=== PATIENT | female | born 1940 | race Caucasian/White ===

== ENCOUNTER 2017-03-31 13:20 | Outpatient (CLI) | payer MEDICARE, OTHER ==
[2016-07-22 00:40] VITALS: BP 178/66
== END 2017-03-31 13:21 ==
LOC: POD 13:20
PROVIDERS: ATTEND Podiatrist
DX: L89.892 Pressure ulcer of other site, stage 2 (principal); I87.323 Chronic venous hypertension (idiopathic) with inflammation of bilateral lower extremity
CPT/HCPCS: G0463

== ENCOUNTER 2017-04-14 13:17 | Outpatient (CLI) | payer MEDICARE, OTHER ==
[2016-07-22 00:40] VITALS: BP 178/66
== END 2017-04-14 13:18 ==
LOC: POD 13:17
PROVIDERS: ATTEND Podiatrist
DX: I87.323 Chronic venous hypertension (idiopathic) with inflammation of bilateral lower extremity (principal)
CPT/HCPCS: G0463

== ENCOUNTER 2017-06-30 13:38 | Outpatient (CLI) | payer MEDICARE, OTHER ==
[2016-07-22 00:40] VITALS: BP 178/66
== END 2017-06-30 13:40 ==
LOC: POD 13:38
PROVIDERS: ATTEND Podiatrist
DX: B35.1 Tinea unguium (principal); M79.674 Pain in right toe(s); M79.675 Pain in left toe(s)
CPT/HCPCS: 11721; G0463

== ENCOUNTER 2018-03-12 13:07 | Outpatient (CLI) | payer MEDICARE, OTHER ==
[2016-07-22 00:40] VITALS: BP 178/66
[2018-03-12 13:27] LABS: BASOPHILS % 0.2 (0.0-1.5); EOSINOPHILS % 4.5 % (0.0-6.8); MEAN CORPUSCULAR HEMOGLOBIN 26.9 pg (28.0-34.0); MEAN CORPUSCULAR VOLUME 90.8 fl (80.0-100.0); MONOCYTES % 4.4 % (0.0-11.0)
[2018-03-12 13:53] LABS: eGFR (African) > 60; eGFR (Non-African) > 60
== END 2018-03-12 13:10 ==
LOC: LAB 13:07
PROVIDERS: ATTEND Family Medicine
DX: E11.9 Type 2 diabetes mellitus without complications (principal); E78.5 Hyperlipidemia, unspecified; I10 Essential (primary) hypertension
CPT/HCPCS: 36415; 80053; 80061; 82043; 83036; 84443; 85025

== ENCOUNTER 2018-05-18 14:50 | Outpatient (CLI) | payer MEDICARE, OTHER ==
[2016-07-22 00:40] VITALS: BP 178/66
== END 2018-05-18 14:55 ==
LOC: POD 14:50
PROVIDERS: ATTEND Podiatrist
DX: B35.1 Tinea unguium (principal); M79.674 Pain in right toe(s); M79.675 Pain in left toe(s); I87.323 Chronic venous hypertension (idiopathic) with inflammation of bilateral lower extremity
CPT/HCPCS: 11721; G0463

== ENCOUNTER 2018-09-24 13:23 | Outpatient (CLI) | payer MEDICARE, OTHER ==
[2016-07-22 00:40] VITALS: BP 178/66
--- NOTE | 2018-10-03 08:55 | OP Clinic Progress Note ---
SUBJECTIVE: Camila Gentile is a 77-year-old female who presented today for toenail trimming, as she is unable to do so herself and she is a diabetic. The patient sees Dr. Mclain at the [facility]. The patient needs her toenails trimmed today. She denies any pain at this time. She has a known history of bilateral lower extremity edema. The patient does not admit to any fevers, chills, nausea, vomiting, shortness of breath, or chest pain at this time. The patient is not aware of any problems with her feet at this time. OBJECTIVE: VITAL SIGNS: Pulse oximetry is 91%, heart rate 87, R: 18, BP: 126/82, T: 98.2 degrees Fahrenheit. Pain is zero out of 10. VASCULAR: Faintly palpable DP and PT pulses bilaterally. Capillary refill time is less than 3 seconds to the toes bilaterally. There is fairly moderate to severe edema of bilateral lower extremities that appears to be equivalent. The patient uses her own wraps for compression. DERMATOLOGIC: Toenails are long, thick, and discolored bilaterally. There is no erythema or hyperkeratosis noted. It should be noted that there is a small purple petechia lesion noted at the left hallux lateral distal tip. This is unknown to the patient for any reason. The patient also has some wetness noted underneath the left great toenail. The left great toe seems slightly erythematous perhaps and slightly more edematous. There is no warmth noted to the left great toe, however. MUSCULOSKELETAL: There is mild pain on palpation noted with slight pushing at the left great toenail area but it was difficult to reproduce on another attempt. There are no other gross abnormalities noted to the bilateral feet. NEUROLOGIC: Light touch sensation is intact to the toes of the bilateral feet. ASSESSMENT: 1. Cellulitis of the left hallux. 2. Dermatophytosis of nail. 3. Lymphedema bilaterally. 4. Venous insufficiency. PROCEDURE #1: Debridement of toenails bilaterally without incident. It should be noted that the left great toenail was debrided down to an appropriate level and the macerated tissue was able to be cleansed and looked pretty healthy but, due to the concern for the look of the left great toe, it was determined to put the patient on antibiotics. (See below) Due to the left hallux lateral distal tip purple small pinpoint lesion, I described to the patient that this could be essentially a chunk of DVT that has broken off and lodged as a thrombus in the toe causing the discoloration or from something else; and due to the nature of this, I feel it would be important to obtain a left lower extremity ultrasound as soon as we can. The patient does not have any erythema or abnormal swelling in 1 leg versus the other and definitely no erythema in either leg. The patient is amenable to obtaining an ultrasound and the order was placed earlier in the day today hoping that we will be able to get that scheduled for tomorrow. As mentioned previously, the patient seems to perhaps have a small cellulitis in the left hallux, and due to a history of an allergy to Augmentin per the patient upon questioning today, I will put her on a short course of clindamycin to cover any small infection. I will send that to [facility] by E- prescribing. PLAN: The patient will return to the clinic in 3 months if no more concerns with the hallux. She knows she needs to keep a good eye on that big toe, as I believe the risk of it being cellulitis today is mild, but I want to be safe just in case by putting her on the antibiotic. We may consider trying to get her back in for another visit sooner just to make sure it looks okay. The left hallux was dressed with triple antibiotic ointment and a Band-Aid today. The patient was encouraged to do this for the next couple of days. The patient is to notify us of any changes or concerns with erythema or purulent drainage or anything like that and to notify us as soon as possible if needed so that we can adjust her antibiotics or see her foot. RERE
== END 2018-09-24 13:24 ==
LOC: POD 13:23
PROVIDERS: ATTEND Podiatrist Foot & Ankle Surgery
DX: B35.9 Dermatophytosis, unspecified (principal); E11.9 Type 2 diabetes mellitus without complications; I89.0 Lymphedema, not elsewhere classified; I87.2 Venous insufficiency (chronic) (peripheral); M79.672 Pain in left foot
CPT/HCPCS: 11721

== ENCOUNTER 2018-09-25 10:12 | Outpatient (CLI) | payer MEDICARE, OTHER ==
[2016-07-22 00:40] VITALS: BP 178/66
--- NOTE | 2018-09-25 13:19 | Diagnostic Imaging Report ---
JAMEE JOHNSON [facility] [address] [facility] [address] [id number] Report Submission Date: Sep 25, 2018 11:49:24 AM TRANSFORMER COIL WINDER Patient Study Name: RAGHU ARRIOLA Date: Sep 25, 2018 11:02:37 AM TRANSFORMER COIL WINDER Modality Type: US Gender: F Description: [facility] : 42 Institution: [facility] Physician: JAMEE JOHNSON Examination: Ultrasound left vein History: Calf discomfort Findings: Sonographic evaluation of the left lower extremity venous system from the groin to the popliteal fossa inclusive. Normal compressibility. No luminal filling defect. Normal waveforms and response to augmentation. No popliteal region fluid collection. Calf vasculature not visualized due to soft tissue edema. Impression: No evidence for deep venous thrombosis. Electronically signed on Sep 25, 2018 11:49:24 AM TRANSFORMER COIL WINDER by: Patel JERNIGAN
== END 2018-09-25 10:13 ==
LOC: RAD 10:12
PROVIDERS: ATTEND Podiatrist Foot & Ankle Surgery
DX: R60.0 Localized edema (principal)
CPT/HCPCS: 93971

== ENCOUNTER 2018-11-07 16:36 | Outpatient (CLI) | payer MEDICARE, OTHER ==
[2016-07-22 00:40] VITALS: BP 178/66
--- NOTE | 2018-11-08 00:33 | Diagnostic Imaging Report ---
LUIZ TRIANA [facility] [address] [facility] [id number] Report Submission Date: Nov 07, 2018 5:19:39 PM VISUAL INSPECTOR Patient Study Name: RAGHU ARRIOLA Date: Nov 07, 2018 4:39:22 PM VISUAL INSPECTOR Modality Type: DX Gender: F Description: CHEST : 42 Institution: [facility] Physician: LUIZ TRIANA Chest, PA and lateral HISTORY Shortness of breath. FINDINGS The right hemidiaphragm is elevated. There is no infiltrate, effusion or pneumothorax. Heart size, mediastinum and pulmonary vascularity are normal. There is calcification in the thoracic aorta. IMPRESSION Elevated right hemidiaphragm. No active pulmonary disease. Electronically signed on Nov 07, 2018 5:19:39 PM VISUAL INSPECTOR by: Jeremie JERNIGAN
== END 2018-11-07 16:38 ==
LOC: RAD 16:36
PROVIDERS: ATTEND Nurse Practitioner Family
DX: R06.02 Shortness of breath (principal)
CPT/HCPCS: 71046

== ENCOUNTER 2018-12-20 11:33 | Outpatient (CLI) | payer MEDICARE, OTHER ==
[2016-07-22 00:40] VITALS: BP 178/66
--- NOTE | 2018-12-20 20:52 | OP Clinic Progress Note ---
CAMILA GENTILE ADMISSION#.: [id number] : 1940 DATE OF VISIT: 12/20/2018 SUBJECTIVE: Camila Gentile is a 78-year-old female who presented to the clinic today for toenail trimming. She has not had any concerns with the great toe that we were concerned about 3 months ago. She states that she is doing well and does not admit any history of wounds or complications recently on bilateral lower legs, either. She has some sort of compression wrap that she applies on her own to her legs as she is unable to do compression stockings. She admits a long history of chronic edema to the bilateral lower extremities as well as slight red discoloration being chronic to bilateral lower extremities in the lower leg. The patient again does not admit to any concerns at this time but would like her toenails trimmed again today. She does not admit to any fevers, chills, nausea, vomiting, shortness of breath or chest pain at this time. OBJECTIVE: Vitals: Temperature 98.2 degrees Fahrenheit, heart rate 82, respiration rate 18, blood pressure 139/70. O2 saturation is 93% on room air. Vascular: Pulses are faintly palpable, DP and PT bilaterally. Capillary refill time is less than 3 seconds to the toes bilaterally. There is still moderate to severe edema bilateral lower extremities that appears to be similar. The patient has her own wraps that she uses. Dermatologic: There is a very tiny pinpoint small eschar noted on the right lower leg medially centrally underneath her wraps. This looks like a dry stable scab that is likely to fall off soon. The patient is unsure of where that came from or if there was a wound previously. There is no real signs of warmth or infection noted at all. The patients toenails are long, thick and discolored bilaterally. There are no wounds or lesions noted bilateral feet. There is mild hyperkeratosis noted sub first metatarsal head bilaterally but the patient does not want them debrided at this time. She understands we can use a Dremel in the other office if she would like to go there next time which she agrees. Musculoskeletal: There is prominent first metatarsal head bilaterally which is where she is carrying a lot of pressure. There are no other gross abnormalities noted. There is no pain on palpation noted bilateral feet. There is no real pain on palpation noted at the calves bilaterally. There is very mild discomfort with squeezing of the calves which I believe is normal due to her swelling. The swelling is chronic for her and does not seem any different to the patient versus normal nor does the slight red discoloration seem any different than normal to the patient. Neurologic: Light touch sensation is intact but seemingly muffled to the toes bilateral. ASSESSMENT AND PLAN: 1. Dermatophytosis of nail. 2. Lymphedema, bilateral lower extremities. 3. Venous insufficiency, bilateral lower extremities. PROCEDURE #1: The toenails were trimmed with nail nippers bilaterally without incident. There was no evidence of concerns with the toes or maceration of any kind as we had concern last time. We went over making sure that the patient had received results of the venous Dopplers performed awhile ago, which we did report awhile ago as being negative for any DVT. The patient will return to the clinic in 3 months over at the [facility] next door for toenail trimming and evaluation of her feet bilaterally again. The patient will see us sooner as needed. She will call the [facility] to set that appointment up. Flaquito Schwab D.P.M. (Dictated/Not Signed) Carmenza Job#: [id number] MTDD
== END 2018-12-20 11:35 ==
LOC: POD 11:33
PROVIDERS: ATTEND Podiatrist Foot & Ankle Surgery
DX: B35.8 Other dermatophytoses (principal); L60.8 Other nail disorders; L81.9 Disorder of pigmentation, unspecified; I87.2 Venous insufficiency (chronic) (peripheral); R60.0 Localized edema
CPT/HCPCS: 11721; A4554

== ENCOUNTER 2019-03-18 12:07 | Outpatient (CLI) | payer MEDICARE, OTHER ==
[2016-07-22 00:40] VITALS: BP 178/66
== END 2019-03-18 12:10 ==
LOC: LAB 12:07
PROVIDERS: ATTEND Family Medicine
DX: Z53.9 Procedure and treatment not carried out, unspecified reason (principal)

== ENCOUNTER 2019-09-13 10:38 | Outpatient (CLI) | payer MEDICARE, OTHER ==
[2016-07-22 00:40] VITALS: BP 178/66
[2019-09-13 11:18] LABS: A1C 7.3 % (<5.7)
[2019-09-13 11:33] LABS: eGFR (Non-African) > 60
== END 2019-09-13 10:43 ==
LOC: LAB 10:38
PROVIDERS: ATTEND Family Medicine
DX: E11.8 Type 2 diabetes mellitus with unspecified complications (principal)
CPT/HCPCS: 36415; 80048; 83036